=== PATIENT | female | born 1970 | race Caucasian/White ===

== ENCOUNTER 2025-06-14 11:28 | Emergency (ER) | payer BC | END 2025-06-14 13:34 | disposition home or self-care (01) | LOC: JD.ED 11:28 | DX: R21 Rash and other nonspecific skin eruption (principal); L97.929 Non-pressure chronic ulcer of unspecified part of left lower leg with unspecified severity; L97.919 Non-pressure chronic ulcer of unspecified part of right lower leg with unspecified severity; I10 Essential (primary) hypertension | CPT/HCPCS: 93971-26-LT; 93971-LT; 99282; 99283 ==